=== PATIENT | female | born 1965 ===

== ENCOUNTER 2022-12-01 10:37 | Inpatient (IN) | payer OTHER ==
[~2022-12-01] VITALS: Ht 170.2 cm; Wt 68.0 kg
[2022-12-01] MEDS ORDERED: HYDROCHLOROTHIA25 MG PO (13:07)
[2022-12-01] MEDS ORDERED: GLIMEPIRIDE4 M1 PO (13:07)
[2022-12-01] MEDS ORDERED: LANTUS SOL100 UNIT/1 (13:07)
[2022-12-01] MEDS ORDERED: CRESTOR10 MG PO (13:08)
[2022-12-01] MEDS ORDERED: ZOLOFT50 MG PO (13:08)
[2022-12-01] MEDS ORDERED: METFORMIN HCL1000 M2 PO (13:08)
[2022-12-01] MEDS ORDERED: TOPROL XL100 M1 PO (13:08)
[2022-12-01] MEDS ORDERED: ACTOS30 MG PO (13:09)
[2022-12-01] MEDS ORDERED: JARDIANCE25 MG PO (13:09)
[2022-12-01] MEDS ORDERED: PROTONIX20 MG PO (13:09)
[2022-12-01] MEDS ORDERED: ZESTRIL20 MG PO (13:09)
== END 2022-12-09 15:42 | disposition home or self-care (01) | DRG 330 ==
LOC: O/R 12-06 05:48 → SURH 12-06 05:48 → SURG 12-06 10:30 → SURH 12-06 12:27
PROVIDERS: ADMIT Colon & Rectal Surgery; ATTEND Colon & Rectal Surgery
PROC: 0DBP4ZZ Excision of Rectum, Percutaneous Endoscopic Approach (ICD-10-PCS; 2022-12-06)
PROC: 07BC4ZX Excision of Pelvis Lymphatic, Percutaneous Endoscopic Approach, Diagnostic (ICD-10-PCS; 2022-12-06)
PROC: 0DQE4ZZ Repair Large Intestine, Percutaneous Endoscopic Approach (ICD-10-PCS; 2022-12-06)
PROC: 0DN84ZZ Release Small Intestine, Percutaneous Endoscopic Approach (ICD-10-PCS; 2022-12-06)
PROC: 0DBM4ZX Excision of Descending Colon, Percutaneous Endoscopic Approach, Diagnostic (ICD-10-PCS; 2022-12-06)
PROC: 0DTN4ZZ Resection of Sigmoid Colon, Percutaneous Endoscopic Approach (ICD-10-PCS; principal; 2022-12-06 10:30)
DX: D12.5 Benign neoplasm of sigmoid colon (principal); C18.6 Malignant neoplasm of descending colon; K92.1 Melena; K91.71 Accidental puncture and laceration of a digestive system organ or structure during a digestive system procedure; K66.0 Peritoneal adhesions (postprocedural) (postinfection); I11.0 Hypertensive heart disease with heart failure; E11.9 Type 2 diabetes mellitus without complications; Z79.4 Long term (current) use of insulin; F10.10 Alcohol abuse, uncomplicated